=== PATIENT | female | born 1935 | race Caucasian/White ===

== ENCOUNTER 2017-05-25 12:53 | Emergency (ER) | payer OTHER ==
[~2017-05-25] VITALS: Ht 147.3 cm; Wt 39.6 kg
[~2017-05-25 12:53] MED LIST: ASPIR 8181 M1 PO; BUDESONIDE0.25 MG/2 IH; CALCIUM 600 +1 EAC4 PO; CARTIA XT120 MG PO; COMBIVENT RESPIM4 GM IH; COUMADIN4 MG PO; DULCOLAX10 MG PR; KLOR-CON 1010 ME1 PO; LASIX40 MG PO; LEVALBUTER1.25 MG/0. IH; LISINOPRIL5 MG PO; METOPROLOL TART50 MG PO; MEVACOR10 M1 PO; MILK OF MAGN PO; MIRALAX17 GM PO; PERFOROMIS20 MCG/2 M IH; TRAMADOL HCL50 MG PO; TYLENOL REGULA325 MG PO; XANAX0.25 MG PO
[2017-05-25 16:37] VITALS: BP 124/84
== END 2017-05-25 16:39 ==
LOC: EME 12:53
DX: S09.90XA Unspecified injury of head, initial encounter (principal); S50.11XA Contusion of right forearm, initial encounter; W06.XXXA Fall from bed, initial encounter; Y92.122 Bedroom in nursing home as the place of occurrence of the external cause; Z79.01 Long term (current) use of anticoagulants; Z79.82 Long term (current) use of aspirin; Z95.1 Presence of aortocoronary bypass graft; J44.9 Chronic obstructive pulmonary disease, unspecified; I10 Essential (primary) hypertension; E78.5 Hyperlipidemia, unspecified; Z87.891 Personal history of nicotine dependence
CPT/HCPCS: 70450; 99281; 99283

== ENCOUNTER 2017-10-05 14:12 | Inpatient (IN) | payer OTHER ==
[~2017-10-05] VITALS: Ht 149.9 cm; Wt 63.9 kg
[~2017-10-05 14:12] MED LIST changes: +COUMADIN1 MG PO; -COUMADIN4 MG PO; -LASIX40 MG PO; +LASIX80 MG PO; +METOPROLOL TART25 MG PO; -METOPROLOL TART50 MG PO
[2017-10-05 14:54] LABS: EOSINOPHIL (%) 1.2 % (0-5); EOSINOPHIL COUNT 0.1 K/uL (0-0.3); HEMATOCRIT 36.7 % (36.0-46.0); IMMATURE GRANULOCYTE (%) 2.3 % (0.0-0.7); IMMATURE GRANULOCYTE COUNT 0.2 K/uL; INSTRUMENT ABS NEUTROPHIL CT 8.2 K/uL; MCH 32.3 PG (29.0-34.0); MCV 97.9 FL (83-99); MEAN PLAT.VOLUME 11.6 uM^3 (9.5-12.4); MONOCYTE COUNT 0.6 K/uL (0-0.8); NEUTROPHIL (%) 80.4 % (45-76); NEUTROPHIL COUNT 8.2 K/uL (1.8-6.4); PLATELET COUNT 196 K/uL (156-360); RBC DIS.WIDTH-CV 12.8 % (11.8-14.6); RBC DIS.WIDTH-SD 45.7 % (39-53); RED BLOOD COUNT 3.75 M/uL (3.80-5.20); WHITE BLOOD COUNT 10.2 K/uL (4.1-10.2)
[2017-10-05 14:59] LABS: INTER. NORMALIZED RATIO 2.4; PROTHROMBIN TIME 27.1 SEC (10.2-12.9)
[2017-10-05 15:02] LABS: CHLORIDE 102 mEq/L (99-109); POTASSIUM 4.3 mEq/L (3.7-5.4); PTT 36.7 SEC (25-37); SODIUM 140 mEq/L (136-147)
[2017-10-05 15:03] LABS: GLUCOSE 124 mg/dL (70-99)
[2017-10-05 15:05] LABS: ANION GAP 10 MEQ/L (2-14)
[2017-10-05 15:07] LABS: GFR ESTIMATE (CALCULATED) 57 mL/min/
[2017-10-05 15:08] LABS: UREA NITROGEN (BUN) 23 mg/dL (9-23)
[2017-10-05] MEDS ORDERED: ALDACTONE25 MG PO (16:41)
[2017-10-05] MEDS ORDERED: AZITHROMYCIN250 MG1 PO (16:42)
[2017-10-05] MEDS ORDERED: COLACE100 MG PO (16:43)
[2017-10-05] MEDS ORDERED: COUMADIN2.5 MG PO (16:45)
[2017-10-05] MEDS ORDERED: ILEVRO1.7 ML RIGHT EYE (16:46)
[2017-10-05] MEDS ORDERED: DAILY VALUE1 EACH PO (16:48)
[2017-10-05] MEDS ORDERED: PRESERVISION T1 EACH PO (16:49)
[2017-10-05] MEDS ORDERED: PRED FORTE100 DROP/5 RIGHT EYE ×2 (16:49→16:55)
[2017-10-05] MEDS ORDERED: SENNA PLUS TAB1 EACH PO (16:50)
[2017-10-05] MEDS ORDERED: ZINC SULFATE220 M1 PO (16:52)
[2017-10-05] MEDS ORDERED: TRAMADOL HCL50 MG PO ×2 (16:56→16:59)
[2017-10-05] MEDS ORDERED: ZANTAC150 MG PO (16:56)
[2017-10-05] MEDS ORDERED: TUMS500 MG PO (17:00)
[2017-10-05 18:47] VITALS: BP 132/60
[2017-10-05 19:43] VITALS: BP 125/58
[2017-10-05 23:21] VITALS: BP 125/74
[2017-10-06] VITALS (7 sets, daily range): BP systolic 126–153; BP diastolic 58–87
[2017-10-06 05:15] LABS: INTER. NORMALIZED RATIO 2.6; PROTHROMBIN TIME 30.3 SEC (10.2-12.9)
[2017-10-06 05:35] LABS: PTT 129.7 SEC (25-37)
[2017-10-06 06:01] LABS: HEMATOCRIT 32.1 % (36.0-46.0); MCH 33.2 PG (29.0-34.0); MCHC 33.6 G/DL (30.0-36.0); MCV 98.8 FL (83-99); PLATELET COUNT 153 K/uL (156-360); RBC DIS.WIDTH-CV 12.7 % (11.8-14.6); RBC DIS.WIDTH-SD 45.3 % (39-53); RED BLOOD COUNT 3.25 M/uL (3.80-5.20); WHITE BLOOD COUNT 13.7 K/uL (4.1-10.2)
[2017-10-06 07:37] LABS: ALKALINE PHOSPHATASE 70 IU/L (3-129); ANION GAP 9 MEQ/L (2-14); CHLORIDE 102 MEQ/L (99-109); GFR ESTIMATE (CALCULATED) > 59 mL/min/; GLUCOSE 152 mg/dL (70-99); POTASSIUM 4.2 MEQ/L (3.7-5.4); SAMPLE HEMOLYSIS CHECK 0; SAMPLE ICTERIC CHECK 0; SAMPLE LIPEMIA CHECK 0; SODIUM 140 MEQ/L (136-147); TOTAL BILIRUBIN 0.6 MG/DL (0.0-1.0); UREA NITROGEN (BUN) 20 mg/dL (9-23)
[2017-10-06 10:48] LABS: HEMATOCRIT 30.9 % (36.0-46.0); MCV 97.8 FL (83-99)
[2017-10-06 10:53] LABS: INTER. NORMALIZED RATIO 2.7; PROTHROMBIN TIME 30.9 SEC (10.2-12.9)
[2017-10-06 16:51] LABS: HEMATOCRIT 28.6 % (36.0-46.0)
[2017-10-06 16:57] LABS: INTER. NORMALIZED RATIO 1.6
[2017-10-06 17:00] LABS: METH RESISTANT S AUREUS PCR NEGATIVE (NEGATIVE)
[2017-10-06 17:03] LABS: PROBE CHECK PASS; SPECIMEN PROCESSING CONTROL PASS
[2017-10-06 17:07] LABS: PTT 33.2 SEC (25-37)
[2017-10-06 21:28] LABS: HEMATOCRIT 30.7 % (36.0-46.0); MCV 101.7 FL (83-99)
[2017-10-07 03:16] VITALS: BP 127/73
[2017-10-07 05:26] LABS: HEMATOCRIT 26.1 % (36.0-46.0); MCH 32.4 PG (29.0-34.0); MCHC 32.6 G/DL (30.0-36.0); MCV 99.6 FL (83-99); MEAN PLAT.VOLUME 12.9 uM^3 (9.5-12.4); PLATELET COUNT 123 K/uL (156-360); RED BLOOD COUNT 2.62 M/uL (3.80-5.20)
[2017-10-07 05:48] LABS: ANION GAP 10 MEQ/L (2-14); CHLORIDE 105 MEQ/L (99-109); GFR ESTIMATE (CALCULATED) > 59 mL/min/; GLUCOSE 155 mg/dL (70-99); POTASSIUM 4.1 MEQ/L (3.7-5.4); SAMPLE HEMOLYSIS CHECK 0; SAMPLE ICTERIC CHECK 0; SAMPLE LIPEMIA CHECK 0; SODIUM 145 MEQ/L (136-147); UREA NITROGEN (BUN) 18 mg/dL (9-23)
[2017-10-07 07:45] VITALS: BP 120/74
[2017-10-07 11:14] VITALS: BP 113/51
[2017-10-07 12:54] LABS: ADD MIUA? YES; BILIRUBIN NEGATIVE; BLOOD SMALL; COLOR YELLOW ((YELLOW)); GLUCOSE (STRIP) NEGATIVE; KETONES NEGATIVE; LEUKOCYTES NEGATIVE; NITRITE NEGATIVE; PROTEIN (STRIP) NEGATIVE; SPECIFIC GRAVITY 1.009 (1.000-1.030); UROBILINOGEN 0.2 MG/DL (0.2-1.0)
[2017-10-07 13:39] LABS: BACTERIA RARE /HPF; EPITHELIAL CELLS NONE SEEN /HPF; MUCUS 1+ /LPF; RED BLOOD CELLS 0-5 /HPF (0-5); WHITE BLOOD CELLS 0-5 /HPF (0-5)
[2017-10-07 14:16] LABS: INTER. NORMALIZED RATIO 1.6; PROTHROMBIN TIME 17.9 SEC (10.2-12.9)
[2017-10-07 16:25] VITALS: BP 118/84
[2017-10-07 19:38] VITALS: BP 122/60
[2017-10-08] VITALS (12 sets, daily range): BP systolic 103–138; BP diastolic 50–83
[2017-10-08 08:58] LABS: HEMATOCRIT 22.7 % (36.0-46.0); MCH 32.7 PG (29.0-34.0); MCHC 32.2 G/DL (30.0-36.0); MCV 101.8 FL (83-99); MEAN PLAT.VOLUME 12.4 uM^3 (9.5-12.4); PLATELET COUNT 122 K/uL (156-360); RBC DIS.WIDTH-CV 13.2 % (11.8-14.6); RBC DIS.WIDTH-SD 48.2 % (39-53); RED BLOOD COUNT 2.23 M/uL (3.80-5.20); WHITE BLOOD COUNT 15.1 K/uL (4.1-10.2)
[2017-10-08 09:05] LABS: INTER. NORMALIZED RATIO 1.6; PROTHROMBIN TIME 17.8 SEC (10.2-12.9)
[2017-10-08 09:23] LABS: ANION GAP 10 MEQ/L (2-14); CHLORIDE 105 MEQ/L (99-109); GFR ESTIMATE (CALCULATED) > 59 mL/min/; GLUCOSE 173 mg/dL (70-99); POTASSIUM 4.1 MEQ/L (3.7-5.4); SAMPLE HEMOLYSIS CHECK 0; SAMPLE ICTERIC CHECK 0; SAMPLE LIPEMIA CHECK 0; SODIUM 140 MEQ/L (136-147); UREA NITROGEN (BUN) 19 mg/dL (9-23)
[2017-10-09 00:05] VITALS: BP 124/56
[2017-10-09 01:05] VITALS: BP 132/64
[2017-10-09 02:05] VITALS: BP 123/61
[2017-10-09 04:12] VITALS: BP 140/76
[2017-10-09 06:54] LABS: HEMATOCRIT 28.1 % (36.0-46.0); MCH 30.7 PG (29.0-34.0); MCHC 33.1 G/DL (30.0-36.0); MEAN PLAT.VOLUME 13.2 uM^3 (9.5-12.4); PLATELET COUNT 116 K/uL (156-360); RBC DIS.WIDTH-CV 15.9 % (11.8-14.6); RBC DIS.WIDTH-SD 52.9 % (39-53); WHITE BLOOD COUNT 13.7 K/uL (4.1-10.2)
[2017-10-09 06:59] LABS: MCV 92.7 FL (83-99); RED BLOOD COUNT 3.03 M/uL (3.80-5.20)
[2017-10-09 07:18] VITALS: BP 121/59
[2017-10-09 07:22] LABS: INTER. NORMALIZED RATIO 2.1; PROTHROMBIN TIME 24.4 SEC (10.2-12.9)
[2017-10-09 07:27] LABS: ANION GAP 9 MEQ/L (2-14); CHLORIDE 106 MEQ/L (99-109); GFR ESTIMATE (CALCULATED) > 59 mL/min/; SAMPLE HEMOLYSIS CHECK 2; SAMPLE ICTERIC CHECK 0; SAMPLE LIPEMIA CHECK 0; SODIUM 136 MEQ/L (136-147); UREA NITROGEN (BUN) 22 mg/dL (9-23)
[2017-10-09 07:28] LABS: GLUCOSE 119 mg/dL (70-99)
[2017-10-09 07:29] LABS: POTASSIUM ND MEQ/L (3.7-5.4)
[2017-10-09 08:42] LABS: POTASSIUM 4.4 MEQ/L (3.7-5.4)
[2017-10-09 10:35] VITALS: BP 110/56
[2017-10-09] MEDS ORDERED: COUMADIN1 MG PO (11:42)
[2017-10-09] MEDS ORDERED: TRAMADOL HCL50 MG PO (12:07)
== END 2017-10-09 14:59 | DRG 481 ==
LOC: EME 14:12 → ENRESERV 16:19 → EDOF 16:34 → 3EAST 16:34 → ENRESERV 16:54 → 3EAST 18:17
PROVIDERS: Emergency Medicine; Hospitalist; Internal Medicine; Internal Medicine Cardiovascular Disease; Orthopaedic Surgery; Physician Assistant; Student in an Organized Health Care Education/Training Program
PROC: 0QS706Z Reposition Left Upper Femur with Intramedullary Internal Fixation Device, Open Approach (ICD-10-PCS; principal; 2017-10-06)
DX: S72.142A Displaced intertrochanteric fracture of left femur, initial encounter for closed fracture (principal); D62 Acute posthemorrhagic anemia; J44.1 Chronic obstructive pulmonary disease with (acute) exacerbation; I42.9 Cardiomyopathy, unspecified; I50.22 Chronic systolic (congestive) heart failure; I25.10 Atherosclerotic heart disease of native coronary artery without angina pectoris; R79.1 Abnormal coagulation profile; T45.515A Adverse effect of anticoagulants, initial encounter; E78.5 Hyperlipidemia, unspecified; W01.0XXA Fall on same level from slipping, tripping and stumbling without subsequent striking against object, initial encounter; I11.0 Hypertensive heart disease with heart failure; R33.9 Retention of urine, unspecified; L89.151 Pressure ulcer of sacral region, stage 1; F41.9 Anxiety disorder, unspecified; I48.2 Chronic atrial fibrillation; Z99.81 Dependence on supplemental oxygen; Z87.891 Personal history of nicotine dependence; Z88.0 Allergy status to penicillin; Z79.51 Long term (current) use of inhaled steroids; Y92.121 Bathroom in nursing home as the place of occurrence of the external cause; Z79.01 Long term (current) use of anticoagulants; Z88.5 Allergy status to narcotic agent; Z95.0 Presence of cardiac pacemaker; Z95.1 Presence of aortocoronary bypass graft; Z95.2 Presence of prosthetic heart valve
CPT/HCPCS: 71010; 73502; 76000; 80048; 80053; 81003; 84999; 85014; 85018; 85025; 85027; 85610; 85730; 86850; 86900; 86901; 86920; 87086; 87641; 93005; 94640; 94640 76; 94799; 99202; 99281; 99285; C1713; C1755; J0690; J1940; J2270; J2405; J3010; J7030; J7040; P9016; P9017